=== PATIENT | female | born 1950 | race Caucasian/White ===

== ENCOUNTER 2018-03-11 13:44 | Emergency (ER) | payer OTHER, BC ==
[~2018-03-11] VITALS: Ht 162.6 cm; Wt 74.4 kg
[~2018-03-11 13:44] MED LIST: CALCIUM 600 +1 EACH PO; MECLIZINE HCL25 MG PO; NAPROXEN500 MG PO; RAYOS2 MG PO; SYNTHROID100 MCG PO; VITAMIN B12-FO1 EACH PO
[2018-03-11 18:06] VITALS: BP 151/8
== END 2018-03-11 18:07 | disposition home or self-care (01) ==
LOC: EME 13:44
DX: M25.531 Pain in right wrist (principal); Z88.0 Allergy status to penicillin
CPT/HCPCS: 73110; 99281; 99283